=== PATIENT | male | born 1965 | race Caucasian/White ===

== ENCOUNTER 2017-12-20 15:37 | Emergency (ER) | payer OTHER ==
[~2017-12-20] VITALS: Ht 177.8 cm; Wt 79.4 kg
[~2017-12-20 15:37] MED LIST: CRUTCH4 USE; HYDACE5 PO; KETO10 PO; Prilosec Otc20 MG PO; RXHYDACE PO
[2017-12-20 15:55] LABS: Hematocrit 46.2 % (37.0-53.0); Hemoglobin 15.9 g/dL (13.5-17.5); Mean Corpuscular HGB 30.6 pg (26.0-34.0); Mean Corpuscular HGB Conc 34.4 g/dL (31.5-36.5); Mean Corpuscular Volume 89 fL (80-100); Mean Platelet Volume 10.8 fL (9.1-12.4); Platelet Count 248 K/mm3 (150-400); RDW Coefficient Variation 12.9 % (11.7-14.2); RDW Standard Deviation 42.5 fL (35.1-46.3); White Blood Cell Count 9.35 K/mm3 (4.00-11.30)
[2017-12-20] MEDS ORDERED: Percocet 5-3251 EACH PO (16:01)
[2017-12-20 16:11] LABS: Anion Gap 9 mmol/L (6-16); Blood Urea Nitrogen 19 mg/dL (8-24); CO2, Blood 25 mmol/L (21-32); Calcium, Blood 9.4 mg/dL (8.5-10.1); Chloride, Blood 106 mmol/L (98-108); Glomerular Filtration Rate >60 (60-); Glucose, Blood 85 mg/dL (70-99); Potassium, Blood 3.9 mmol/L (3.5-5.5); Sodium, Blood 140 mmol/L (136-145)
== END 2017-12-20 16:37 | disposition home or self-care (01) ==
LOC: ER 15:37
PROVIDERS: Emergency Medicine
DX: R55 Syncope and collapse (principal)
CPT/HCPCS: 36415; 80048; 85027; 93005; 93010; 99284-25; J7030

== ENCOUNTER → 2019-04-18 | Outpatient (CLI) | payer OTHER ==
[~2019-04-18] MED LIST changes: +Percocet 5-3251 EACH PO
== END | disposition home or self-care (01) ==
LOC: PLD 08:52 → LAB SHORT 08:52
DX: R23.8 Other skin changes (principal)
CPT/HCPCS: 88305

== ENCOUNTER 2020-09-22 09:08 | Emergency (ER) | payer OTHER ==
[~2020-09-22] VITALS: Ht 177.8 cm; Wt 84.4 kg
[2020-09-22] MEDS ORDERED: Mobic15 MG PO (12:09)
[2020-09-22] MEDS ORDERED: ONDA4ODT MM (12:09)
[2020-09-22] MEDS ORDERED: HYDR1TAB94 PO (12:09)
[2020-09-22] MEDS ORDERED: Valium5 MG PO (12:09)
== END 2020-09-22 12:56 | disposition home or self-care (01) ==
LOC: ER 09:08
DX: M54.5 Low back pain (principal)
CPT/HCPCS: 72131; 96372; 99283-25; A9270; J1885; J3010

== ENCOUNTER 2024-04-06 09:31 | Day surgery (SDC) | payer OTHER ==
[~2024-04-06] VITALS: Ht 175.3 cm; Wt 72.2 kg
[~2024-04-06 09:31] MED LIST changes: +HYDR1TAB94 PO; +Lactated Ringer's 1,000 ML IV ONE; +Mobic15 MG PO; +ONDA4ODT MM; +Valium5 MG PO; +propofoL 50 ML IV ONE
[2024-04-06] MEDS ORDERED: NYSTRIT (11:09)
[2024-04-06] MEDS ORDERED: Lactated Ringer's 1,000 ML IV ONE (11:52)
[2024-04-06 13:26] VITALS: BP 99/69
== END 2024-04-06 12:58 | disposition home or self-care (01) ==
LOC: ORSCSDS 09:31
PROVIDERS: Surgery
PROC: 0DJD8ZZ Inspection of Lower Intestinal Tract, Via Natural or Artificial Opening Endoscopic (ICD-10-PCS; principal; 2024-04-06 11:00)
DX: Z12.11 Encounter for screening for malignant neoplasm of colon (principal); Z86.0101 Personal history of adenomatous and serrated colon polyps; Z79.899 Other long term (current) drug therapy
CPT/HCPCS: J2704; J7120